=== PATIENT | female | born 1955 | race Caucasian/White ===

== ENCOUNTER 2018-05-21 06:16 | Day surgery (SDC) | payer OTHER ==
[~2018-05-21] VITALS: Ht 152.4 cm; Wt 75.3 kg
[2018-05-21] MEDS ORDERED: METF850T4 PO (07:27)
[2018-05-21] MEDS ORDERED: KETOROLAC 30 MG/ML VIAL ONE (08:39)
[2018-05-21] MEDS ORDERED: LIDOCAINE 2% 100 MG/5 ML UJET TP ONE (08:39)
== END 2018-05-21 09:43 | disposition home or self-care (01) ==
LOC: MDS 06:16 → MMU 06:16 → MDS 09:43
PROVIDERS: ATTEND Internal Medicine Gastroenterology
DX: K59.00 Constipation, unspecified (principal); K63.89 Other specified diseases of intestine; E78.5 Hyperlipidemia, unspecified; E11.9 Type 2 diabetes mellitus without complications; E66.9 Obesity, unspecified; Z68.32 Body mass index [BMI] 32.0-32.9, adult; Z79.899 Other long term (current) drug therapy; Z79.82 Long term (current) use of aspirin; Z98.51 Tubal ligation status; Z98.890 Other specified postprocedural states
CPT/HCPCS: 45378; 82948; J1885